=== PATIENT | female | born 1970 | race African-American/Black ===

== ENCOUNTER → 2020-03-09 | Outpatient (CLI) | payer BC ==
--- NOTE | 2020-03-10 09:32 | RAD ---
DATE: 03/09/2020 EXAM: DIGITAL DIAGNOSTIC BILATERAL HISTORY: Palpable lump in left breast just posterior to the nipple. History of left breast cyst last year. COMPARISON: Screening mammogram 07/24/2013 This study was interpreted with the benefit of Computerized Aided Detection (CAD). Breast Density: SCATTERED The breast parenchyma shows scattered fibroglandular densities. Breast parenchyma level B. FINDINGS: There is focal asymmetry in the retroareolar left breast compared to the right. On spot compression views, a round mass measuring 1.6 cm becomes conspicuous. Other well-circumscribed ovoid masses and intramammary lymph nodes in the upper outer breasts and the lower right breast are unchanged 2013. No suspicious calcifications or architectural distortion. IMPRESSION: 1.6 cm mass in the retroareolar left breast, correlating with palpable abnormality. Recommend ultrasound to further evaluate. BI-RADS CATEGORY: 0 INCOMPLETE: NEEDS ADDITIONAL IMAGING EVALUATION AND/OR PRIOR MAMMOGRAMS FOR COMPARISON. RECOMMENDED FOLLOW-UP: ADD ADDITIONAL IMAGING PQRS compliance statement: Mammography is a sensitive method for finding small breast cancers, but it does not detect them all and is not a substitute for careful clinical examination. A negative mammogram does not negate a clinically suspicious finding and should not result in delay in biopsying a clinically suspicious abnormality. "Our facility is accredited by the [employer] Mammography Program."
--- NOTE | 2020-03-10 09:37 | RAD ---
EXAMINATION: BREAST LEFT, 03/09/2020 2:00 PM CLINICAL INDICATION: Left breast mass COMPARISON: Diagnostic bilateral mammogram same day Technique: Focused ultrasound of the of the left breast in the area of palpable concern. SONOGRAPHIC FINDINGS: There is a 1.8 x 1.6 x 1.4 cm solid-appearing hypoechoic mass with internal vascularity at 12:00, 4 cm from the nipple. 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 There is an abnormal lymph node in the left axilla with a lobulated cortex measuring 6 mm. IMPRESSION: 1. 1.8 cm suspicious mass at 12:00, 4 cm from the nipple. This correlates with the palpable abnormality. There is also a suspicious lymph node in the left axilla. 2. BI-RADS 4-SUSPICIOUS 3. RECOMMENDATION: Recommend ultrasound-guided biopsy of suspicious left breast mass and left axillary lymph node. A results and recommendation letter will be sent to the patient. Electronically signed by: Vilma Winn MD (03/10/2020 9:34 AM) [id number]
== END ==
LOC: MAMMO 13:07
PROVIDERS: ATTEND Specialist
DX: R92.8 Other abnormal and inconclusive findings on diagnostic imaging of breast (principal); N63.11 Unspecified lump in the right breast, upper outer quadrant; N63.42 Unspecified lump in left breast, subareolar
CPT/HCPCS: 76641; 77066

== ENCOUNTER 2020-03-24 06:48 | Day surgery (SDC) | payer BC ==
[~2020-03-24] VITALS: Ht 165.1 cm; Wt 74.8 kg
[~2020-03-24 06:48] MED LIST: ceFAZolin SODIUM IV Push 1 GM VIAL. IVP PRN
[2020-03-24] MEDS ORDERED: fentaNYL PF VIAL 100 MCG/2 ML VIAL IV PRN (07:00)
[2020-03-24] MEDS ORDERED: PROCHLORPERAZINE 10 MG/2 ML VIAL. IV PRN (07:00)
[2020-03-24] MEDS ORDERED: IV RINGERS,LACTATED 1000ML 1,000 ML IV SCH (07:00)
[2020-03-24] MEDS ORDERED: MORPHINE SULFATE 2 MG/ML VIAL. IV PRN (07:00)
[2020-03-24] MEDS ORDERED: ONDANSETRON PF 4 MG/2 ML VIAL. IV PRN (07:00)
[2020-03-24] MEDS ORDERED: HYDROmorphone 2 MG/ML VIAL IV PRN (07:00)
--- NOTE | 2020-03-24 07:02 | HP ---
ADMIT DATE: HISTORY OF PRESENT ILLNESS: The patient comes in with a mass of the left breast. She has been followed by another physician, he found a mass and referred her to me. She has no symptoms and the mass she states is getting larger. Not sure how long it has been there, but apparently it was something there a year ago, which went away with medicine, but now it is back, it is getting larger and she needs to have it treated. PAST MEDICAL HISTORY: Shows normal childhood diseases. She has no high blood pressure, TB, asthma or diabetes. She did get stat many years ago in the abdomen when has a transverse upper abdominal incision, mostly on the left and she stated not in her abdomen but just soft tissue and subcutaneous and did not go into the abdominal cavity. She has had no other surgeries. ALLERGIES: She has no allergies. MEDICATIONS: Takes no medication for anything. FAMILY HISTORY: Noncontributory. SOCIAL HISTORY: Shows that she used marijuana, but no illicit drugs and does not smoke. REVIEW OF SYSTEMS: Negative. PHYSICAL EXAMINATION: GENERAL: Shows an alert female in no acute distress. HEAD, EYES, EARS, NOSE AND THROAT: Normal. CHEST: Clear bilaterally to auscultation. HEART: Had no murmurs, heaves, friction rubs or thrills, and the rate was 75 beats per minute and was regular. ABDOMEN: Negative except for this previous scar described in the upper abdomen and the epigastrium. PELVIC: Not done. RECTAL: Not done. EXTREMITIES: Grossly normal. BREASTS: Examination of the right breast and axilla was negative. No masses, discharge or other problems. The left breast had a large mass, being probably 5 cm or more in size at the 12 o'clock position at the areolar margin. The left axillary area did have one small node, which appeared to be soft and it felt to be about a cm or 2 in size, but there was no tenderness throughout. No nipple discharge, no skin retraction or other suggestions of cancer. IMPRESSION: Mass of the left breast. Did discuss the possibility of having a needle biopsy of the lesion and she did not want that. She was given that option, she wanted to have the mass removed and we did give her the option; however, we spoke about the needle biopsy, but she wanted to remove. We will proceed. She understands the lymph node probably needs to be removed too and we will make a decision and that Radiology decide if the node that I feel is what needs to be removed or there is another one ____ needle localize it. She understands this and this will be done as outpatient. АНДРЕЙ CUNHA MD DR: KAT/cecilia JOB#: [id number] / [id number]
[2020-03-24 07:46] LABS: BASO % 1 % (0-3); EOS % 0 % (0-3); HEMATOCRIT 26.4 % (36.0-47.0); HEMOGLOBIN 8.2 g/dL (12.0-15.5); LYMPH # 1.1 x10^3/uL (1.0-4.8); LYMPH % 21 % (24-48); MEAN CORPUSCULAR HEMOGLOBIN 23 pg (25-35); MEAN CORPUSCULAR HGB CONC 31 g/dL (31-37); MEAN CORPUSCULAR VOLUME 73 fL (79-100); MONO # 0.6 x10^3/uL (0.0-1.1); MONO % 11 % (0-9); NEUT # 3.5 x10^3/uL (1.8-7.7); NEUT % 66 % (31-73); PLATELET COUNT 336 x10^3/uL (140-400); RED BLOOD COUNT 3.64 x10^6/uL (3.50-5.40); RED CELL DISTRIBUTION WIDTH 18.9 % (11.5-14.5); WHITE BLOOD COUNT 5.3 x10^3/uL (4.0-11.0)
[2020-03-24 07:56] LABS: PROTHROMBIN TIME PATIENT 13.4 SEC (11.7-14.0)
[2020-03-24 08:09] LABS: CALCIUM 8.3 mg/dL (8.5-10.1); CREATININE 0.9 mg/dL (0.6-1.0); GFR 80.9; POTASSIUM 3.3 mmol/L (3.5-5.1)
[2020-03-24] MEDS ORDERED: METHYLENE BLUE 0.5% 10ml AMPULE. ONE (08:48)
[2020-03-24] MEDS ORDERED: fentaNYL PF VIAL 100 MCG/2 ML VIAL ONE ×2 (09:18→12:18)
--- NOTE | 2020-03-24 09:26 | PDOC ---
SURGICAL PROGRESS NOTE DATE: 03/24/20 TIME: 09:25 No change in dictated H&P Vital Signs Vital Signs Date Time Temp Pulse Resp B/P (MAP) Pulse Ox O2 Delivery O2 Flow Rate FiO2 03/24/20 07:34 98.6 97 97 98.6 03/24/20 07:33 16 134/72 Room Air Labs Laboratory Tests Test 03/24/20 07:15 03/24/20 09:01 White Blood Count 5.3 x10^3/uL (4.0-11.0) Red Blood Count 3.64 x10^6/uL (3.50-5.40) Hemoglobin 8.2 g/dL (12.0-15.5) Hematocrit 26.4 % (36.0-47.0) Mean Corpuscular Volume 73 fL (79-100) Mean Corpuscular Hemoglobin 23 pg (25-35) Mean Corpuscular Hemoglobin Concent 31 g/dL (31-37) Red Cell Distribution Width 18.9 % (11.5-14.5) Platelet Count 336 x10^3/uL (140-400) Neutrophils (%) (Auto) 66 % (31-73) Lymphocytes (%) (Auto) 21 % (24-48) Monocytes (%) (Auto) 11 % (0-9) Eosinophils (%) (Auto) 0 % (0-3) Basophils (%) (Auto) 1 % (0-3) Neutrophils # (Auto) 3.5 x10^3/uL (1.8-7.7) Lymphocytes # (Auto) 1.1 x10^3/uL (1.0-4.8) Monocytes # (Auto) 0.6 x10^3/uL (0.0-1.1) Eosinophils # (Auto) 0.0 x10^3/uL (0.0-0.7) Basophils # (Auto) 0.0 x10^3/uL (0.0-0.2) Prothrombin Time 13.4 SEC (11.7-14.0) Prothromb Time International Ratio 1.1 (0.8-1.1) Activated Partial Thromboplast Time 27 SEC (24-38) Sodium Level 140 mmol/L (136-145) Potassium Level 3.3 mmol/L (3.5-5.1) Chloride Level 105 mmol/L (98-107) Carbon Dioxide Level 24 mmol/L (21-32) Anion Gap 11 (6-14) Blood Urea Nitrogen 8 mg/dL (7-20) Creatinine 0.9 mg/dL (0.6-1.0) Estimated GFR (Cockcroft-Gault) 80.9 Glucose Level 100 mg/dL (70-99) Calcium Level 8.3 mg/dL (8.5-10.1) Bedside Urine HCG, Qualitative Hcg negative (Negative) Laboratory Tests Test 03/24/20 07:15 03/24/20 09:01 White Blood Count 5.3 x10^3/uL (4.0-11.0) Red Blood Count 3.64 x10^6/uL (3.50-5.40) Hemoglobin 8.2 g/dL (12.0-15.5) Hematocrit 26.4 % (36.0-47.0) Mean Corpuscular Volume 73 fL (79-100) Mean Corpuscular Hemoglobin 23 pg (25-35) Mean Corpuscular Hemoglobin Concent 31 g/dL (31-37) Red Cell Distribution Width 18.9 % (11.5-14.5) Platelet Count 336 x10^3/uL (140-400) Neutrophils (%) (Auto) 66 % (31-73) Lymphocytes (%) (Auto) 21 % (24-48) Monocytes (%) (Auto) 11 % (0-9) Eosinophils (%) (Auto) 0 % (0-3) Basophils (%) (Auto) 1 % (0-3) Neutrophils # (Auto) 3.5 x10^3/uL (1.8-7.7) Lymphocytes # (Auto) 1.1 x10^3/uL (1.0-4.8) Monocytes # (Auto) 0.6 x10^3/uL (0.0-1.1) Eosinophils # (Auto) 0.0 x10^3/uL (0.0-0.7) Basophils # (Auto) 0.0 x10^3/uL (0.0-0.2) Prothrombin Time 13.4 SEC (11.7-14.0) Prothromb Time International Ratio 1.1 (0.8-1.1) Activated Partial Thromboplast Time 27 SEC (24-38) Sodium Level 140 mmol/L (136-145) Potassium Level 3.3 mmol/L (3.5-5.1) Chloride Level 105 mmol/L (98-107) Carbon Dioxide Level 24 mmol/L (21-32) Anion Gap 11 (6-14) Blood Urea Nitrogen 8 mg/dL (7-20) Creatinine 0.9 mg/dL (0.6-1.0) Estimated GFR (Cockcroft-Gault) 80.9 Glucose Level 100 mg/dL (70-99) Calcium Level 8.3 mg/dL (8.5-10.1) Bedside Urine HCG, Qualitative Hcg negative (Negative) АНДРЕЙ CUNHA MD Mar 24, 2020 09:26
--- NOTE | 2020-03-24 09:29 | PDOC ---
SURGICAL PROGRESS NOTE DATE: 03/24/20 TIME: 09:27 Op Note: Surgeon............................................Cunha Pre op diag........................................left breast mass Post op diag......................................left breast mass Anesthesia........................................general Procedure.........................................excision mass left breast Drains...............................................none Blood loss..........................................7cc Fluids................................................see anesthesia sheet condition...........................................satisfactory Vital Signs Vital Signs Date Time Temp Pulse Resp B/P (MAP) Pulse Ox O2 Delivery O2 Flow Rate FiO2 03/24/20 07:34 98.6 97 97 98.6 03/24/20 07:33 16 134/72 Room Air Labs Laboratory Tests Test 03/24/20 07:15 03/24/20 09:01 White Blood Count 5.3 x10^3/uL (4.0-11.0) Red Blood Count 3.64 x10^6/uL (3.50-5.40) Hemoglobin 8.2 g/dL (12.0-15.5) Hematocrit 26.4 % (36.0-47.0) Mean Corpuscular Volume 73 fL (79-100) Mean Corpuscular Hemoglobin 23 pg (25-35) Mean Corpuscular Hemoglobin Concent 31 g/dL (31-37) Red Cell Distribution Width 18.9 % (11.5-14.5) Platelet Count 336 x10^3/uL (140-400) Neutrophils (%) (Auto) 66 % (31-73) Lymphocytes (%) (Auto) 21 % (24-48) Monocytes (%) (Auto) 11 % (0-9) Eosinophils (%) (Auto) 0 % (0-3) Basophils (%) (Auto) 1 % (0-3) Neutrophils # (Auto) 3.5 x10^3/uL (1.8-7.7) Lymphocytes # (Auto) 1.1 x10^3/uL (1.0-4.8) Monocytes # (Auto) 0.6 x10^3/uL (0.0-1.1) Eosinophils # (Auto) 0.0 x10^3/uL (0.0-0.7) Basophils # (Auto) 0.0 x10^3/uL (0.0-0.2) Prothrombin Time 13.4 SEC (11.7-14.0) Prothromb Time International Ratio 1.1 (0.8-1.1) Activated Partial Thromboplast Time 27 SEC (24-38) Sodium Level 140 mmol/L (136-145) Potassium Level 3.3 mmol/L (3.5-5.1) Chloride Level 105 mmol/L (98-107) Carbon Dioxide Level 24 mmol/L (21-32) Anion Gap 11 (6-14) Blood Urea Nitrogen 8 mg/dL (7-20) Creatinine 0.9 mg/dL (0.6-1.0) Estimated GFR (Cockcroft-Gault) 80.9 Glucose Level 100 mg/dL (70-99) Calcium Level 8.3 mg/dL (8.5-10.1) Bedside Urine HCG, Qualitative Hcg negative (Negative) Laboratory Tests Test 03/24/20 07:15 03/24/20 09:01 White Blood Count 5.3 x10^3/uL (4.0-11.0) Red Blood Count 3.64 x10^6/uL (3.50-5.40) Hemoglobin 8.2 g/dL (12.0-15.5) Hematocrit 26.4 % (36.0-47.0) Mean Corpuscular Volume 73 fL (79-100) Mean Corpuscular Hemoglobin 23 pg (25-35) Mean Corpuscular Hemoglobin Concent 31 g/dL (31-37) Red Cell Distribution Width 18.9 % (11.5-14.5) Platelet Count 336 x10^3/uL (140-400) Neutrophils (%) (Auto) 66 % (31-73) Lymphocytes (%) (Auto) 21 % (24-48) Monocytes (%) (Auto) 11 % (0-9) Eosinophils (%) (Auto) 0 % (0-3) Basophils (%) (Auto) 1 % (0-3) Neutrophils # (Auto) 3.5 x10^3/uL (1.8-7.7) Lymphocytes # (Auto) 1.1 x10^3/uL (1.0-4.8) Monocytes # (Auto) 0.6 x10^3/uL (0.0-1.1) Eosinophils # (Auto) 0.0 x10^3/uL (0.0-0.7) Basophils # (Auto) 0.0 x10^3/uL (0.0-0.2) Prothrombin Time 13.4 SEC (11.7-14.0) Prothromb Time International Ratio 1.1 (0.8-1.1) Activated Partial Thromboplast Time 27 SEC (24-38) Sodium Level 140 mmol/L (136-145) Potassium Level 3.3 mmol/L (3.5-5.1) Chloride Level 105 mmol/L (98-107) Carbon Dioxide Level 24 mmol/L (21-32) Anion Gap 11 (6-14) Blood Urea Nitrogen 8 mg/dL (7-20) Creatinine 0.9 mg/dL (0.6-1.0) Estimated GFR (Cockcroft-Gault) 80.9 Glucose Level 100 mg/dL (70-99) Calcium Level 8.3 mg/dL (8.5-10.1) Bedside Urine HCG, Qualitative Hcg negative (Negative) АНДРЕЙ CUNHA MD Mar 24, 2020 09:29
[2020-03-24] MEDS ORDERED: DEXAMETHASONE SOD PHOS 4 MG/ML VIAL ONE (09:31)
[2020-03-24] MEDS ORDERED: PROPOFOL 10 MG/ML (20ML) VIAL. IV ONE ×2 (09:31→10:41)
[2020-03-24] MEDS ORDERED: LIDOCAINE 2% PF 5 ML VIAL. ONE (09:31)
[2020-03-24] MEDS ORDERED: ONDANSETRON PF 4 MG/2 ML VIAL. ONE (09:31)
--- NOTE | 2020-03-24 10:04 | RAD ---
EXAM: Sonographic guided left axillary lymph node biopsy and clip placement. HISTORY: 50-year-old female presents for sonographic guided biopsy of an abnormal left axillary lymph node demonstrated on a sonogram performed 03/09/2020. The patient is undergoing resection of a known left breast mass. TECHNIQUE: The risks of the procedure discussed with the patient and written and verbal consent was obtained. A timeout was performed. Sonographic imaging of the left axilla was performed and the lymph node of concern was identified. The skin in this location was sterilely prepped, draped and infiltrated with 1 percent lidocaine. Multiple core samples were obtained through the lymph node with sonographic guidance. A biopsy clip was advanced into the lymph node. Manual compression was maintained until hemostasis was achieved. A sterile bandage was placed. The patient tolerated the procedure without complication. IMPRESSION: Sonographic guided left axillary lymph node biopsy and biopsy clip placement. An addendum to this report will be submitted when pathology results are available. Electronically signed by: Pallavi Morales MD (03/24/2020 10:01 AM) [id number]
[2020-03-24] MEDS ORDERED: LIDOCAINE 1%/EPI 1:100,000 20 ML VIAL. ONE (10:33)
[2020-03-24 10:36] LABS: HYPOCHROMIA MOD; PLT ESTIMATE ADEQUATE (ADEQUATE)
[2020-03-24 10:37] LABS: ANISOCYTOSIS PRESENT; MICROCYTOSIS PRESENT
[2020-03-24] MEDS ORDERED: SEVOFLURANE 61 TO 120 MINUTES. IH ONE (11:48)
--- NOTE | 2020-03-24 11:48 | DISCH ---
DISCHARGE INSTRUCTIONS Condition on Discharge Condition on Discharge: Stable Activity After Discharge Activity Instructions for Disc: No restrictions Diet after Discharge Diet after Discharge: Clear Liquid Additional Diet Restrictions: clear liquid until no nausea present Wound Incision Care Other wound/incision instructi: Keep dry 72 hours then remove prn..gauze or cloth over incison and under br Follow-Up Follow up with: Dr Cnuha 10-14 days АНДРЕЙ CUNHA MD Mar 24, 2020 11:48
[2020-03-24] MEDS ORDERED: CLIN150C2 PO (12:10)
[2020-03-24] MEDS ORDERED: HYDR-2761 PO (12:11)
[2020-03-24] MEDS ORDERED: HYDROcodone/APAP 5/325MG 1 TAB TABLET PO ONE (12:15)
[2020-03-24] MEDS: fentaNYL PF VIAL 100 MCG/2 ML VIAL IV PRN ×2 (12:21→12:26)
[2020-03-24 13:00] VITALS: BP 154/76
--- NOTE | 2020-03-25 01:18 | OP ---
DATE OF SURGERY: 03/24/2020 SURGEON: Rm Cunha MD PREOPERATIVE DIAGNOSIS: Mass of the left breast. POSTOPERATIVE DIAGNOSIS: Mass of the left breast. ANESTHESIA: General. PROCEDURE: Excision tumor, left breast. TECHNIQUE: Under general anesthesia, the patient was properly prepped and draped in a routine fashion. The lesion being at the 12 o'clock position near the areolar margin, we made a circumareolar incision between the 10 and 2 o'clock position using a 15 blade. We took this through the skin and down into the subcutaneous. The lesion was deep, but could easily be palpated and was about 3-4 cm in size. We carried this down into the subcutaneous using cautery and then using Metzenbaum scissors and cautery, divided tissue around the mass. We used Aleena retractors and then Jiménez's to hold the edges back. We got deeper and then pulled the tissue up around the mass with a clamp up including part of mass. We then divided widely around the mass and divided the tissues in the subcutaneous and fat and breast tissue using cautery. Small bleeders were cauterized and the lesion was slowly removed totally. We got around it, taking good margins we felt. This was sent to pathology. I did speak to the pathologist and she will review and do a frozen section if she thought it was necessary, but she would examine as we want to make certain this was not a cancer or some other process. The resultant defect was inspected. All bleeding was controlled and we then proceeded to approximate the deeper tissues and breast tissue using interrupted 3-0 Vicryl. We did this. She understood there may be some dimpling in there, but there was a good cosmetic result. We slowly then closed more superficial areas with 4-0 Vicryl interrupted suture. The skin was closed using a 5-0 subcuticular Vicryl. The procedure was then terminated as the skin was closed. We then applied a small dressing. The blood loss was about 8-10 mL. Fluids given can be obtained from the anesthesia sheet. No drains were used. Condition of the patient was satisfactory as she was returned to the recovery room. RM CUNHA MD DR: KAT/cecilia JOB#: [id number] / [id number]
--- NOTE | 2020-03-30 15:09 | PATHOLOGY ---
[facility] Accession Number: [id number] . 01 Material submitted: . PART A: breast - LEFT BREAST MASS. Modifiers: left PART B: lymph node - LEFT AXILLARY NODE TISSUE. Modifiers: left, axillary tail . 01 Clinical history: . BREAST MASS, ABNORMAL LEFT AXILLARY LYMPH NODE . 02 Diagnosis: A. Breast tissue, left breast mass excision: - Breast abscess. 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 . B. Segments of lymph node, left axillary lymph node needle biopsies: - Reactive lymphoid hyperplasia with focal acute lymphadenitis. (JPM:nicole/pit; 03/29/2020) S 03/30/2020 0926 Local . 02 Comment: Sections of the left breast mass excision reveal a breast abscess. Within the central portion of the abscess there are neutrophils, histiocytes, focal multinucleated giant cells and focal apparent keratinaceous material. The surrounding breast tissue shows chronic inflammation and proliferative fibrocystic changes with focal moderate ductal epithelial hyperplasia. There is no atypia or evidence of malignancy. . Sections of the left axillary lymph node needle biopsy reveal segments of lymph node. The mira architecture overall appears preserved. There are a few lymphoid follicles present containing reactive germinal centers. There is sinus histiocytosis with focal presence of neutrophils within the mira sinuses. The mira sinuses are focally bordered by a mixture of small lymphocytes and variable numbers of plasma cells. There is no evidence of malignancy. The case is also examined by Dr. Bhandari, who concurs with the diagnosis. (JPM:nicole/pit; 03/29/2020) . 02 Electronically signed: . Kishore Corrigan MD, Pathologist NPI- [id number] . 01 Gross description: . A. The specimen is received in formalin, labeled "Antonia Diaz, left breast mass" and consists of an unoriented 25 g segment of yellow fibroadipose tissue measuring 5.2 x 4.0 x 3.2 cm. It is inked black and sectioned revealing dense fibrous tissue with a 2.1 x 1.9 cm abscess cavity. No additional lesions are identified. Computer Numeric Control Setter tissue is submitted in A1-A7. The specimen was obtained at 10:53 AM and placed in formalin at 11:10 AM on 03/24/2020. The cold ischemic time is 8 minutes and the total formalin fixation time is greater than 6 hours less than 72 hours. . B. The specimen is received in formalin, labeled "Antonia Diaz, left axillary node BX" and consists of 4 needle cores of yellow tissue measuring between 1.2 cm and 2.0 cm in length and 0.2 cm each in diameter which are entirely submitted in B1-B3. No time in formalin or time collected is provided. The time out of formalin is 11:50 PM on 03/25/2020. (SDY; 03/25/2020) SYU/SYU 03/25/2020 1330 Local . 02 Pathologist provided ICD-10: N61.0, N60.12, N62, N60.32, N60.42, N60.82, L04.2, I88.1 . 02 CPT . 673941, [id number] Specimen Comment: A courtesy copy of this report has been sent to [phone] Specimen Comment: Report sent to Performed at: 01 [facility] [address], [place] [id number] MD Ananth Rowe MD Phone: [phone] Performed at: 02 [facility] [address] [place], [place] [id number] MD Kishore Corrigan MD Phone: [phone]
== END 2020-03-24 13:36 | disposition home or self-care (01) ==
LOC: SURG 06:48
PROVIDERS: ATTEND Specialist
DX: R59.0 Localized enlarged lymph nodes (principal); N63.20 Unspecified lump in the left breast, unspecified quadrant; N60.12 Diffuse cystic mastopathy of left breast; N60.42 Mammary duct ectasia of left breast; N60.82 Other benign mammary dysplasias of left breast; Z79.899 Other long term (current) drug therapy; Z98.890 Other specified postprocedural states; Z72.89 Other problems related to lifestyle
CPT/HCPCS: 19120; 36415; 38505; 76942; 80048; 81025; 85025; 85610; 85730; 87071; 87075; 87077; 88305; A7015; J0690; J1100; J2405; J2704; J3010; J3490; 19081; Q9968